=== PATIENT | male | born 1990 | race Caucasian/White ===

== ENCOUNTER 2018-08-06 07:05 | Emergency (ER) | payer BC ==
[~2018-08-06] VITALS: Ht 172.7 cm; Wt 74.8 kg
[2018-08-06] MEDS ORDERED: TUSSIONEX PENN115 ML PO (07:41)
[2018-08-06] MEDS ORDERED: AUGMENTIN600 MG/5 M PO (07:41)
[2018-08-06] MEDS ORDERED: MEDROLDOSEPACK PO (07:41)
[2018-08-06 07:49] VITALS: BP 121/80
== END 2018-08-06 07:50 | disposition home or self-care (01) ==
LOC: M.ERS 07:05
DX: J03.90 Acute tonsillitis, unspecified (principal); F32.9 Major depressive disorder, single episode, unspecified; F17.210 Nicotine dependence, cigarettes, uncomplicated